=== PATIENT | male | born 1950 | race Caucasian/White ===

== ENCOUNTER 2020-03-10 19:33 | Emergency (ER) | payer MEDICARE, OTHER ==
[~2020-03-10] VITALS: Ht 165.1 cm; Wt 65.2 kg
[2020-03-10] MEDS ORDERED: methylPREDNISolone SOD SUCC PF 125 MG/2 ML VIAL. IV ONE (19:45)
[2020-03-10] MEDS ORDERED: ASPIRIN CHEWABLE 81 MG TABLET. PO ONE (19:45)
--- NOTE | 2020-03-10 20:06 | PHYS DOC ---
Past History Past Medical History: CAD, Cancer (Bladder), CHF, COPD Past Surgical History: Coronary Bypass Surgery, Pacemaker, Other Additional Past Surgical Histo: Back, colostomy Alcohol Use: None Adult General Chief Complaint Chief Complaint: SHORTNESS OF BREATH HPI HPI Patient is a 69-year-old male who presents via EMS for shortness of breath. Patient with extensive past medical history significant for active bladder cancer with recent completion of chemotherapy 1 week ago presents for worsening shortness of breath. Nothing known makes better or worse. Patient denies any chest pain or other knee pain since onset. States symptoms have been gradually worsening but over the past 72 hours have progressed rapidly prompting him to call EMS today. On arrival to his home, patient was found hypoxic on room air in the 80s, he does not use supplemental oxygen at home. All other vitals remained stable. Patient denies any fever, chills, chest pain, productive cough, abdominal pain, changes in bladder and/or bowel function, no sick contacts, no COVID-19 exposure, lives at home with and reports inability to perform activities of daily living for past 72 hours which is unusual for him. Patient is a , seeks majority of his care at local [facility]. He admits history of blood clots in the past and is currently on Eliquis, patient unsure of other medical history such as cardiac history and reason for pacemaker placement Review of Systems Review of Systems Fourteen body systems of review of systems have been reviewed. See HPI for pertinent positives and negative responses, other felton all other systems are negative, non-pertinent or non-contributory Current Medications Current Medications Current Medications Medications (Trade) Dose Ordered Sig/Tiffanie Start Time Stop Time Status Last Admin Dose Admin Aspirin (Aspirin Chewable) 324 mg 1X ONCE 03/10/20 19:45 03/10/20 19:50 DC Methylprednisolone Sodium Succinate (SOLU-Medrol 125MG VIAL) 125 mg 1X ONCE 03/10/20 19:45 03/10/20 19:50 DC Allergies Allergies Allergies Coded Allergies Type Severity Reaction Last Updated Verified No Known Drug Allergies 03/10/20 No Physical Exam Physical Exam Constitutional: Well developed, well nourished, moderate respiratory distress on arrival, non-toxic appearance. HENT: Normocephalic, atraumatic, bilateral external ears normal, oropharynx dry, no oral exudates, nose normal. Nasal cannula in place Eyes: PERRLA, EOMI, conjunctiva normal, no discharge. Neck: Normal range of motion, no tenderness, supple, no stridor. Cardiovascular: Heart rate regular, sinus rhythm, no rubs or gallops Lungs & Thorax: Moderate respiratory distress on arrival with accessory muscle usage and neck and abdomen noted, scant wheezing bilaterally without any obvious rhonchi or rales Abdomen: Bowel sounds normal, soft, no tenderness, no masses, no pulsatile masses. Diverting ostomy from previously removed bladder from bladder cancer present and well-appearing. Nonsurgical abdomen, no peritoneal signs Skin: Warm, dry, no erythema, no rash. Back: No tenderness, no CVA tenderness. Extremities: No tenderness, no cyanosis, no clubbing, ROM intact, no edema. Neurologic: Alert and oriented X 3, grossly normal motor & sensory function, no focal deficits noted. Psychologic: Affect normal, judgement normal, anxious mood Current Patient Data Vital Signs Vital Signs Date Time Temp Pulse Resp B/P (MAP) Pulse Ox O2 Delivery O2 Flow Rate FiO2 03/10/20 19:38 98.2 76 26 167/85 (112) 88 Room Air Lab Results Laboratory Tests Test 03/10/20 19:57 03/10/20 21:38 03/10/20 22:15 White Blood Count 22.2 x10^3/uL (4.0-11.0) Red Blood Count 4.15 x10^6/uL (4.30-5.70) Hemoglobin 11.9 g/dL (13.0-17.5) Hematocrit 36.9 % (39.0-53.0) Mean Corpuscular Volume 89 fL (79-100) Mean Corpuscular Hemoglobin 29 pg (25-35) Mean Corpuscular Hemoglobin Concent 32 g/dL (31-37) Red Cell Distribution Width 14.0 % (11.5-14.5) Platelet Count 309 x10^3/uL (140-400) Neutrophils (%) (Auto) 85 % (31-73) Lymphocytes (%) (Auto) 4 % (24-48) Monocytes (%) (Auto) 8 % (0-9) Eosinophils (%) (Auto) 2 % (0-3) Basophils (%) (Auto) 1 % (0-3) Neutrophils # (Auto) 19.0 x10^3uL (1.8-7.7) Lymphocytes # (Auto) 0.9 x10^3/uL (1.0-4.8) Monocytes # (Auto) 1.8 x10^3/uL (0.0-1.1) Eosinophils # (Auto) 0.3 x10^3/uL (0.0-0.7) Basophils # (Auto) 0.2 x10^3/uL (0.0-0.2) Segmented Neutrophils % 87 % (35-66) Lymphocytes % 7 % (24-48) Monocytes % 5 % (0-10) Eosinophils % 1 % (0-5) Platelet Estimate Adequate (ADEQUATE) Bedside Venous pH 7.35 (7.32-7.42) Bedside Venous pCO2 51 mmHg (41-51) Bedside Venous pO2 36 mmHg (20-40) Venous Blood HCO3 28 mmol/L (24-28) POC Venous O2 Saturation (Amada) 65 % Bedside FiO2 28 Sodium Level 124 mmol/L (136-145) Potassium Level 4.7 mmol/L (3.5-5.1) Chloride Level 91 mmol/L (98-107) Carbon Dioxide Level 27 mmol/L (21-32) Anion Gap 6 (6-14) Blood Urea Nitrogen 22 mg/dL (8-26) Creatinine 1.0 mg/dL (0.7-1.3) Estimated GFR (Cockcroft-Gault) 73.9 BUN/Creatinine Ratio 22 (6-20) Glucose Level 190 mg/dL (70-99) Lactic Acid Level 1.5 mmol/L (0.4-2.0) Calcium Level 8.8 mg/dL (8.5-10.1) Total Bilirubin 0.2 mg/dL (0.2-1.0) Aspartate Amino Transf (AST/SGOT) 43 U/L (15-37) Alanine Aminotransferase (ALT/SGPT) 65 U/L (16-63) Alkaline Phosphatase 89 U/L (46-116) Troponin I Quantitative < 0.017 ng/mL (0-0.055) RJ-Ctu-O-Type Natriuretic Peptide 1732 pg/mL (0-124) Total Protein 7.2 g/dL (6.4-8.2) Albumin 2.7 g/dL (3.4-5.0) Albumin/Globulin Ratio 0.6 (1.0-1.7) Influenza Type A (Rapid) Negative (NEGATIVE) Influenza Type B (Rapid) Negative (NEGATIVE) Urine Collection Type Unknown Urine Color Yellow Urine Clarity Clear Urine pH 6.5 Urine Specific [place] 1.020 Urine Protein 100 mg/dl (NEG-TRACE) Urine Glucose (UA) Neg mg/dL (NEG) Urine Ketones (Stick) Neg mg/dL (NEG) Urine Blood Large (NEG) Urine Nitrite Neg (NEG) Urine Bilirubin Neg (NEG) Urine Urobilinogen Dipstick 0.2 mg/dL (0.2 mg/dL) Urine Leukocyte Esterase Neg (NEG) Urine RBC 11-20 /HPF (0-2) Urine WBC 1-4 /HPF (0-4) Urine Squamous Epithelial Cells None /LPF Urine Bacteria Mod /HPF (0-FEW) EKG EKG EKG ordered and interpreted by myself at 1958 hrs. as and intraventricular rhythm at 71 bpm, QRS 182, prolonged QTC at 488, right axis deviation, right bundle branch block, no STEMI Radiology/Procedures Radiology/Procedures PROCEDURE: PORTABLE CHEST 1V Examination: PORTABLE CHEST 1V History: Reason: shob / Spl. Instructions: / History: Comparison/Correlation: None Findings: Portable frontal view of the chest was obtained. Right-sided infusion port catheter terminates overlying the superior cavoatrial junction. Dual lead left-sided ICD is present. Sternal wires and mediastinal clips are present. Heart size is within upper limits of normal. Minimal diffuse pulmonary interstitial thickening is nonspecific. No focal consolidation or effusion. No pneumothorax. Impression: No infiltrate. Electronically signed by: Luis Alvarenga MD (03/10/2020 8:10 PM) [facility] Heart Score HEART Score for Chest Pain: HEART Score for Chest Pain Response (Comments) Value History Slighlty/Non-Suspicious 0 ECG Nonspecific Repolarizatio 1 Age > 65 2 Risk Factors >3 Risk Factors or Hx CAD 2 Troponin < Normal Limit 0 Total 5 Risk Factors: Risk Factors: DM, Current or recent (<one month) smoker, HTN, HLP, family his tory of CAD, obesity. Risk Scores: Risk Factors: DM, Current or recent (<one month) smoker, HTN, HLP, family history of CAD, obesity. Course & Med Decision Making Course & Med Decision Making Pertinent Labs and Imaging studies reviewed. (See chart for details) Reviewed patient's ER work-up in its entirety. I disclosed I do not have a good explanation for patient's presenting symptomology. White count is elevated which shortness of breath which could be consistent with recent chemotherapy for which patient does not know the name of. No identifiable source of infection at this time Patient hypercoagulable given current diagnosis of cancer but is currently on adequate therapy, no indication for repeat CT angio for pulmonary embolism at this time Patient has electrolyte abnormalities, I suspect these are likely due to patient's underlying cancer and/or recent chemotherapy Patient still hypoxic on room air, presented in ER at 83% on room air prior to administration of supplemental oxygen. Continuing to require 2 L supplemental oxygen via nasal cannula to keep saturations greater than 90%. Patient pending COVID-19 testing at this time. With all of this said, patient is not stable for discharge home. Given that he is a , I have contacted local [facility] hospital to discuss case and potential transfer for admission. [facility] is full but they recommended I start Zosyn at this time, patient had this administered prior to departure. I subsequently contacted [facility] and case was discussed with Dr. Deluna who ultimately accepted patient transfer under his care. I discussed plan of care with patient who is amenable to transfer. All questions and concerns addressed prior to transportation via EMS in stable condition Dragon Disclaimer Dragon Disclaimer This electronic medical record was generated, in whole or in part, using a voice recognition dictation system. Departure Departure: Impression: Primary Impression: Acute respiratory failure with hypoxia Additional Impressions: Bladder cancer ICD (implantable cardioverter-defibrillator) in place Hyponatremia Normocytic anemia Disposition: 02 DC/TRF OTHER SHORT TERM HOS ([facility]) Admitting Physician: Other (Dr. Deluna) Condition: STABLE Problem Qualifiers KENZIE PENA DO Mar 10, 2020 20:06
--- NOTE | 2020-03-10 20:12 | RAD ---
Examination: PORTABLE CHEST 1V History: Reason: shob / Spl. Instructions: / History: Comparison/Correlation: None Findings: Portable frontal view of the chest was obtained. Right-sided infusion port catheter terminates overlying the superior cavoatrial junction. Dual lead left-sided ICD is present. Sternal wires and mediastinal clips are present. Heart size is within upper limits of normal. Minimal diffuse pulmonary interstitial thickening is nonspecific. No focal consolidation or effusion. No pneumothorax. Impression: No infiltrate. Electronically signed by: Luis Alvarenga MD (03/10/2020 8:10 PM) [facility]
[2020-03-10 20:24] LABS: BASO # 0.2 x10^3/uL (0.0-0.2); BASO % 1 % (0-3); EOS # 0.3 x10^3/uL (0.0-0.7); EOS % 2 % (0-3); HEMATOCRIT 36.9 % (39.0-53.0); HEMOGLOBIN 11.9 g/dL (13.0-17.5); LYMPH # 0.9 x10^3/uL (1.0-4.8); LYMPH % 4 % (24-48); MEAN CORPUSCULAR HEMOGLOBIN 29 pg (25-35); MEAN CORPUSCULAR HGB CONC 32 g/dL (31-37); MEAN CORPUSCULAR VOLUME 89 fL (79-100); MONO # 1.8 x10^3/uL (0.0-1.1); MONO % 8 % (0-9); NEUT % 85 % (31-73); PLATELET COUNT 309 x10^3/uL (140-400); RED BLOOD COUNT 4.15 x10^6/uL (4.30-5.70); WHITE BLOOD COUNT 22.2 x10^3/uL (4.0-11.0)
--- NOTE | 2020-03-10 20:32 | EKG ---
[address] [address] Test Date: 2020-03-10 Test Time: 19:57:10 Pat Name: AD LAGOS Department: Room: Gender: M Platform Power Technician: VANESSA : 1950 Requested By: KENZIE PENA Order Number: [id number] Reading MD: Measurements Intervals [place] Rate: 71 P: 90 HI: 130 QRS: 243 QRSD: 182 T: 68 QT: 444 QTc: 488 Interpretive Statements SINUS RHYTHM WPW PATTERN, TYPE A ABNORMAL RIGHT SUPERIOR AXIS DEVIATION ABNORMAL ECG RI6.02 No previous ECG available for comparison
[2020-03-10 20:44] LABS: CALCIUM 8.8 mg/dL (8.5-10.1); GFR 73.9; POTASSIUM 4.7 mmol/L (3.5-5.1)
[2020-03-10 20:53] LABS: ALBUMIN 2.7 g/dL (3.4-5.0); ALBUMIN/GLOBULIN RATIO 0.6 (1.0-1.7); TOTAL BILIRUBIN 0.2 mg/dL (0.2-1.0); TOTAL PROTEIN 7.2 g/dL (6.4-8.2)
[2020-03-10 21:29] LABS: % EOS 1 % (0-5); % LYMPHS 7 % (24-48); % MONOS 5 % (0-10); % SEGS 87 % (35-66)
[2020-03-10 21:30] LABS: PLT ESTIMATE ADEQUATE (ADEQUATE)
[2020-03-10] MEDS ORDERED: IV NORMAL SALINE 500ML 500 ML IV ONE (22:00)
[2020-03-10 22:05] LABS: INFLUENZA A PATIENT NEGATIVE (NEGATIVE); INFLUENZA B PATIENT NEGATIVE (NEGATIVE)
[2020-03-10 22:44] LABS: BACTERIA,URINE MOD /HPF (0-FEW); BILIRUBIN,URINE NEG (NEG); CLARITY,URINE CLEAR; COLOR,URINE YELLOW; GLUCOSE,URINE NEG (NEG); NITRITE,URINE NEG (NEG); UROBILINOGEN,URINE 0.2 mg/dL (0.2 mg/dL)
[2020-03-10] MEDS ORDERED: PIPERACILLIN/TAZOBACTAM 4.5 GM in IV NORMAL SALINE 50ML 50 ML IV ONE (22:45)
[2020-03-10] MEDS ORDERED: PIPERACILLIN/TAZOBACTAM 4.5 GM VIAL IV ONE (23:29)
[2020-03-10] MEDS ORDERED: IV NORMAL SALINE 50ML 50 ML ONE (23:29)
[2020-03-10 23:32] VITALS: BP 153/72
== END 2020-03-10 23:59 | disposition short-term general hospital (02) ==
LOC: ER 19:33
DX: J96.01 Acute respiratory failure with hypoxia (principal); E87.1 Hypo-osmolality and hyponatremia; D64.9 Anemia, unspecified; I25.10 Atherosclerotic heart disease of native coronary artery without angina pectoris; J44.9 Chronic obstructive pulmonary disease, unspecified; I25.810 Atherosclerosis of coronary artery bypass graft(s) without angina pectoris; I50.9 Heart failure, unspecified; Z20.828 Contact with and (suspected) exposure to other viral communicable diseases; Z85.51 Personal history of malignant neoplasm of bladder; Z95.0 Presence of cardiac pacemaker; Z79.01 Long term (current) use of anticoagulants
CPT/HCPCS: 36415; 71045; 80053; 81001; 82803; 83605; 83880; 84484; 85007; 85025; 87040; 87077; 87086; 87186; 87804; 93005; 96361; 96365; 96375; 99285; C9803; J2543; J2930; J7040; U0003